=== PATIENT | male | born 1960 | race Caucasian/White ===

== ENCOUNTER 2016-12-28 09:25 | Observation (INO) | payer OTHER ==
[2016-12-28] MEDS ORDERED: Sodium Chloride 0.9% 1,000 ML IV ONE (09:31)
[2016-12-28] MEDS ORDERED: Aspirin 81 MG Tab.Chew PO ONE (09:31)
--- NOTE | 2016-12-28 09:32 | EDM.PDOC ---
ED HPI GENERAL MEDICAL PROBLEM - General Stated Complaint: CHEST PAIN Time Seen by Provider: 12/28/16 09:31 Source of Information: Reports: Patient - History of Present Illness INITIAL COMMENTS - FREE TEXT/NARRATIVE: HISTORY AND PHYSICAL: History of present illness: [Patient with cardiac history and 2 stents placed 5-6 years prior [place], presents with chest pain that awoke him from sleep at 4 AM he rates 8 out of 10 radiating to the left arm states he was diaphoretic and reports it as a "familiar pain "to his previous symptomology. He is in no distress he presents by private vehicle he is not on any medications] patient reports that all his medications were stopped by a accounting manager cpa in [place] Currently no fever nausea vomiting chills sweats There is a reproducible component along left sternal border and even in the left arm however patient's symptomatology did improve with nitroglycerin 0.4 sublingual to a 4 out of 10 Review of systems: As per history of present illness and below otherwise all systems reviewed and negative. Past medical history: As per history of present illness and as reviewed below otherwise noncontributory. Surgical history: As per history of present illness and as reviewed below otherwise noncontributory. Social history: No reported history of drug or alcohol abuse. Family history: As per history of present illness and as reviewed below otherwise noncontributory. Physical exam: HEENT: Atraumatic, normocephalic, pupils reactive, negative for conjunctival pallor or scleral icterus, mucous membranes moist, throat clear, neck supple, nontender, trachea midline. Lungs: Clear to auscultation, breath sounds equal bilaterally, chest somewhat tender along left sternal border Heart: S1S2, regular, negative for clicks, rubs, or JVD. Abdomen: Soft, nondistended, nontender. Negative for masses or hepatosplenomegaly. Negative for costovertebral tenderness. Pelvis: Stable nontender. Genitourinary: Deferred. Rectal: Deferred. Extremities: Atraumatic, negative for cords or calf pain. Neurovascular unremarkable. Neuro: Awake, alert, oriented. Cranial nerves II through XII unremarkable. Cerebellum unremarkable. Motor and sensory unremarkable throughout. Exam nonfocal. Diagnostics: [CBC CMP cardiac enzymes amylase lipase Chest 1 view EKG ] Therapeutics: []Liter normal saline bolus Aspirin 324 mg chewable Impression: []Atypical chest pain Cardiac history with stenting Probable medication noncompliance Definitive disposition and diagnosis as appropriate pending reevaluation and review of above. Left Chest Pain Score (Numeric/FACES): 4 - Related Data Allergies Allergy/AdvReac Type Severity Reaction Status Date / Time No Known Allergies Allergy Verified 12/28/16 09:37 Home Meds: Home Meds . 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 Musculoskeletal History: Reports: None Neurological History: Reports: None Psychiatric History: Reports: None Endocrine/Metabolic History: Reports: None Hematologic History: Reports: None Immunologic History: Reports: None Oncologic (Cancer) History: Reports: None Dermatologic History: Reports: None - Past Surgical History Cardiovascular Surgical History: Reports: Coronary Artery Stent, Percutaneous Transluminal Angioplasty GI Surgical History: Reports: Appendectomy, Colonoscopy, Hernia, Inguinal, Other (See Below) Social & Family History - Tobacco Use Smoking Status *Q: Former Smoker Years of Tobacco use: 25 Packs/Tins Daily: 0.5 Used Tobacco, but Quit: Yes Month Tobacco Last Used: 2013 Second Hand Smoke Exposure: No - Caffeine Use Caffeine Use: Reports: Coffee - Alcohol Use Days Per Week of Alcohol Use: 0 - Recreational Drug Use Recreational Drug Use: No Drug Use in Last 12 Months: No ED ROS GENERAL - Review of Systems Review Of Systems: ROS reveals no pertinent complaints other than HPI. ED EXAM, GENERAL - Physical Exam Exam: See Below Course - Vital Signs Last Recorded V/S: Last Vital Signs Temp 36.2 C 12/28/16 09:34 Pulse 69 12/28/16 10:06 Resp 18 12/28/16 09:34 BP 134/81 12/28/16 10:06 Pulse Ox 91 L 12/28/16 09:34 - Orders/Labs/Meds Orders: Active Orders 24 hr Category Date Time Status EKG Documentation Completion [RC] STAT Care 12/28/16 09:32 Active AMYLASE [CHEM] Stat Lab 12/28/16 09:38 Results CKMB [CHEM] Stat Lab 12/28/16 09:38 Results COMPREHENSIVE METABOLIC PN,CMP [CHEM] Stat Lab 12/28/16 09:38 Results CREATINE KINASE,CK [CHEM] Stat Lab 12/28/16 09:38 Results LIPASE [CHEM] Stat Lab 12/28/16 09:38 Results TROPONIN I [CHEM] Stat Lab 12/28/16 09:38 Results UA W/MICROSCOPIC [URIN] Stat Lab 12/28/16 09:30 Uncollected Nitroglycerin [Nitrostat] Med 12/28/16 09:35 Active 0.4 mg SL Q5M PRN Sodium Chloride 0.9% [Normal Saline] 1,000 ml Med 12/28/16 09:31 Active IV STAT Medication Orders Sodium Chloride (Normal Saline) 1,000 mls @ 999 mls/hr IV STAT ONE Stop: 12/28/16 10:31 Last Admin: 12/28/16 09:41 Dose: 999 mls/hr Nitroglycerin (Nitrostat) 0.4 mg SL Q5M PRN PRN Reason: Chest Pain Last Admin: 12/28/16 10:00 Dose: 0.4 mg Admin: 12/28/16 09:50 Dose: 0.4 mg Labs: Laboratory Tests 12/28/16 12/28/16 Range/Units 09:38 09:38 WBC 8.11 (4.0-11.0) K/uL RBC 5.52 (4.50-5.90) M/uL Hgb 16.1 (13.0-17.0) g/dL Hct 48.2 (38.0-50.0) % MCV 87.3 (80.0-98.0) fL MCH 29.2 (27.0-32.0) pg MCHC 33.4 (31.0-37.0) g/dL RDW Std Deviation 48.2 (28.0-62.0) fl RDW Coeff of Diane 15 (11.0-15.0) % Plt Count 256 (150-400) K/uL MPV 9.50 (7.40-12.00) fL Neut % (Auto) 59.3 (48.0-80.0) % Lymph % (Auto) 33.3 (16.0-40.0) % [place] % (Auto) 5.7 (0.0-15.0) % Eos % (Auto) 1.5 (0.0-7.0) % Baso % (Auto) 0.2 (0.0-1.5) % Neut # (Auto) 4.8 (1.4-5.7) K/uL Lymph # (Auto) 2.7 H (0.6-2.4) K/uL [place] # (Auto) 0.5 (0.0-0.8) K/uL Eos # (Auto) 0.1 (0.0-0.7) K/uL Baso # (Auto) 0.0 (0.0-0.1) K/uL Nucleated RBC % 0.0 /100WBC Nucleated RBCs # 0 K/uL Sodium 139 (136-146) mmol/L Potassium 4.4 (3.5-5.1) mmol/L Chloride 106 (98-110) mmol/L Carbon Dioxide 24 (21-31) mmol/L BUN 17 (6.0-23.0) mg/dL Creatinine 1.3 (0.6-1.5) mg/dL Est Cr Clr Drug Dosing 68.81 mL/min Estimated GFR (MDRD) 56.9 ml/min Glucose 170 H (60-110) mg/dL Calcium 9.4 (8.8-10.8) mg/dL Total Bilirubin 0.3 (0.1-1.5) mg/dL AST 15 (5-40) IU/L ALT 17 (8-54) IU/L Alkaline Phosphatase 79 (40-150) Creatine Kinase 79 (9-236) IU/L Troponin I < 0.10 (0.0-0.29) NG/ML Total Protein 7.3 (6.0-8.0) g/dL Albumin 3.9 (3.5-5.0) g/dL Globulin 3.4 (2.0-3.5) g/dL Albumin/Globulin Ratio 1.1 L (1.3-2.8) Amylase 87 (10-90) U/L Lipase 22 (7-80) U/L Meds: Medications Generic Name Dose Route Start Last Admin Trade Name Freq PRN Reason Stop Dose Admin Sodium Chloride 1,000 mls @ 999 mls/hr 12/28/16 09:31 12/28/16 09:41 Normal Saline IV 12/28/16 10:31 999 mls/hr STAT ONE Administration Nitroglycerin 0.4 mg 12/28/16 09:35 12/28/16 10:00 Nitrostat SL 0.4 mg Q5M PRN Administration Chest Pain Discontinued Medications Generic Name Dose Route Start Last Admin Trade Name Henry PRN Reason Stop Dose Admin Aspirin 324 mg 12/28/16 09:31 12/28/16 09:41 Aspirin PO 12/28/16 09:32 324 mg ONETIME ONE Administration Metoprolol Tartrate 5 mg 12/28/16 09:36 12/28/16 09:43 Lopressor IVPUSH 12/28/16 09:37 5 mg ONETIME ONE Administration Departure - Departure Time of Disposition: 10:19 Disposition: Refer to Observation Condition: Fair Clinical Impression: Acute coronary syndrome - Discharge Information - My Orders Last 24 Hours: My Active Orders 12/28/16 09:30 UA W/MICROSCOPIC [URIN] Stat 12/28/16 09:31 Sodium Chloride 0.9% [Normal Saline] 1,000 ml IV STAT 12/28/16 09:32 EKG Documentation Completion [RC] STAT 12/28/16 09:35 Nitroglycerin [Nitrostat] 0.4 mg SL Q5M PRN 12/28/16 09:38 AMYLASE [CHEM] Stat CKMB [CHEM] Stat COMPREHENSIVE METABOLIC PN,CMP [CHEM] Stat CREATINE KINASE,CK [CHEM] Stat LIPASE [CHEM] Stat TROPONIN I [CHEM] Stat - Assessment/Plan Last 24 Hours: My Active Orders 12/28/16 09:30 UA W/MICROSCOPIC [URIN] Stat 12/28/16 09:31 Sodium Chloride 0.9% [Normal Saline] 1,000 ml IV STAT 12/28/16 09:32 EKG Documentation Completion [RC] STAT 12/28/16 09:35 Nitroglycerin [Nitrostat] 0.4 mg SL Q5M PRN 12/28/16 09:38 AMYLASE [CHEM] Stat CKMB [CHEM] Stat COMPREHENSIVE METABOLIC PN,CMP [CHEM] Stat CREATINE KINASE,CK [CHEM] Stat LIPASE [CHEM] Stat TROPONIN I [CHEM] Stat
[2016-12-28] MEDS ORDERED: Metoprolol Tartrate 5 MG/5 ML SDV IVPUSH ONE (09:36)
[2016-12-28] MEDS: Nitroglycerin 0.4 MG Tab.SL SL PRN ×2 (09:50→10:00)
--- NOTE | 2016-12-28 10:01 | CR ---
EXAMINATION: Portable chest radiograph. HISTORY: Shortness of breath. FINDINGS: The trachea is midline. The cardiomediastinal silhouette is within normal limits. No pulmonary infilt rates, effusions or pneumothorax. Osseous structures appear unremarkable. IMPRESSION: No acute cardiopulmonary process.
[2016-12-28 10:09] LABS: CHLORIDE,CL 106 mmol/L (98-110); SODIUM,NA 139 mmol/L (136-146)
[2016-12-28] MEDS ORDERED: Albuterol/Ipratropium 3.0-0.5 MG/3 ML Neb Soln NEB PRN (11:40)
[2016-12-28] MEDS ORDERED: Ondansetron 4 MG Tab.DIS PO PRN (11:40)
--- NOTE | 2016-12-28 11:50 | PCM.HP ---
H&P History of Present Illness - General Date of Service: 12/28/16 Admit Problem/Dx: Chest pain Source of Information: Patient History Limitations: Reports: No Limitations - History of Present Illness Initial Comments - Free Text/Narative: 56-year-old male that is being admitted for ACS rule out secondary to chest pain experiencing this morning. Patient has a past medical history of coronary artery disease requiring 2 stents placed 5-6 years ago in [place]. Patient also has a history of hypercholesterolemia, hypertension and GERD. Patient notes that he was on medications following placement of the stents but followed up with a head of it in [place] who told him to discontinue all medications. It has been a number of years since the patient has been on any medications for the above-mentioned medical problems. Patient presented to the emergency room this morning after experiencing chest pain that woke him from sleep at 4 AM. The pain radiated from the left side of his chest to his left arm. Pain was rated at 8 out of 10. Patient was diaphoretic. Pain persisted until he presented to the ER and received a dose of nitroglycerin. He notes that this pain is very similar to the pain that he experienced when they found a blockage requiring stents in 2013. Patient does not take nitroglycerin at home. Patient does have a 25 year history of tobacco use but quit in 2013. Patient does not take a daily aspirin. Patient denies any headaches, dizziness, shortness of breath, wheezing, cough, abdominal pain, nausea, vomiting, cuts patient, diarrhea, peripheral edema, orthopnea, fever. ER course: CBC, CMP, initial troponin, amylase, lipase, urinalysis and chest x-ray were all unremarkable or within normal limits. Patient did receive a one-time dose of aspirin 325 mg. He was hypertensive on presentation and received a one-time dose of metoprolol tartrate 5 mg which did lower the patient's blood pressure to within normal limits. He was also given a normal saline bolus. He was given a one-time dose of nitroglycerin which did improve the patient's chest pain. Patient currently reports minimal chest pain on the general medical floor. Left Chest Pain Score (Numeric/FACES): 4 - Related Data Allergies/Adverse Reactions: Allergies Allergy/AdvReac Type Severity Reaction Status Date / Time No Known Allergies Allergy Verified 12/28/16 09:37 Home Medications: Home Meds . 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 Musculoskeletal History: Reports: None Neurological History: Reports: None Psychiatric History: Reports: None Endocrine/Metabolic History: Reports: None Hematologic History: Reports: None Immunologic History: Reports: None Oncologic (Cancer) History: Reports: None Dermatologic History: Reports: None - Infectious Disease History Infectious Disease History: Reports: Chicken Pox, Measles, Mumps - Past Surgical History Cardiovascular Surgical History: Reports: Coronary Artery Stent, Percutaneous Transluminal Angioplasty GI Surgical History: Reports: Appendectomy, Colonoscopy, Hernia, Inguinal, Other (See Below) Social & Family History - Family History Family Medical History: Noncontributory - Tobacco Use Smoking Status *Q: Former Smoker Years of Tobacco use: 25 Packs/Tins Daily: 0.5 Used Tobacco, but Quit: Yes Month Tobacco Last Used: 2013 Second Hand Smoke Exposure: No - Caffeine Use Caffeine Use: Reports: Coffee - Alcohol Use Days Per Week of Alcohol Use: 0 - Recreational Drug Use Recreational Drug Use: No Drug Use in Last 12 Months: No H&P Review of Systems - Review of Systems: Review Of Systems: See Below General: Reports: Diaphoresis HEENT: Reports: No Symptoms Pulmonary: Reports: No Symptoms Cardiovascular: Reports: Chest Pain (Left-sided chest pain with radiation to the left arm) Gastrointestinal: Reports: No Symptoms Genitourinary: Reports: No Symptoms Musculoskeletal: Reports: No Symptoms Skin: Reports: No Symptoms Psychiatric: Reports: No Symptoms Neurological: Reports: No Symptoms Hematologic/Lymphatic: Reports: No Symptoms Immunologic: Reports: No Symptoms Exam - Exam Exam: See Below - Vital Signs Vital Signs: Last Vital Signs Temp 97.2 F 12/28/16 09:34 Pulse 60 12/28/16 10:46 Resp 12 12/28/16 10:46 BP 134/87 12/28/16 10:46 Pulse Ox 96 12/28/16 10:46 Weight: 273 lb 2.444 oz - Exam Quality Assessment: DVT Prophylaxis (Lovenox, SCDs) General: Alert, Oriented, Cooperative HEENT: Conjunctiva Clear, Hearing Intact, Nares Patent, Normal Nasal Septum Neck: Supple, Trachea Midline, 2 Lungs: Clear to Auscultation, Normal Respiratory Effort Cardiovascular: Regular Rate, Regular Rhythm, Other (Patient does have mild tenderness with palpation on the left side of the chest along the left sternal border.) GI/Abdominal Exam: Normal Bowel Sounds, Soft, Non-Tender, No Organomegaly, No Distention, No Abnormal Bruit, No Mass Extremities: Normal Inspection, Normal Range of Motion, Non-Tender, No Pedal Edema, Normal Capillary Refill Peripheral Pulses: 2+: Radial (L), Radial (R), Posterior Tibial (L), Posterior Tibial (R) Skin: Warm, Dry, Intact Neuro Extensive - Mental Status: Alert, Oriented x3, Normal Mood/Affect, Normal Cognition Psychiatric: Alert, Normal Affect, Normal Mood - Patient Data Result Diagrams: 12/28/16 09:38 12/28/16 09:38 *Q Meaningful Use (ADM) - VTE *Q VTE Criteria *Q: - Stroke *Q Stroke Criteria *Q: - AMI *Q AMI Criteria *Q: - Problem List (1) Chest pain SNOMED Code(s): 60266846 ICD Code: R07.9 - CHEST PAIN, UNSPECIFIED Status: Acute Current Visit: No Qualifiers: Chest pain type: unspecified Qualified Code(s): R07.9 - Chest pain, unspecified Problem List Initiated/Reviewed/Updated: Yes Orders Last 24hrs: Active Orders 24 hr Category Date Time Status Antiembolic Devices [RC] PER UNIT ROUTINE Care 12/28/16 11:42 Ordered Cardiac Monitoring [RC] . DIRECTED Care 12/28/16 11:37 Ordered Communication Order [RC] ROUTINE Care 12/28/16 11:39 Ordered Height and Weight [RC] DAILY Care 12/28/16 11:40 Ordered Intake and Output [RC] QSHIFT Care 12/28/16 11:40 Ordered Notify Provider Vital Signs [RC] ASDIRECTED Care 12/28/16 11:40 Ordered Oxygen Therapy [RC] PRN Care 12/28/16 11:40 Ordered Pulse Oximetry [RC] PRN Care 12/28/16 11:40 Ordered RT Aerosol Therapy [RC] ASDIRECTED Care 12/28/16 11:43 Ordered Telemetry Monitoring [Cardiac Monitoring] [RC] . Care 12/28/16 11:44 Ordered DIRECTED Up With Assistance [RC] ASDIRECTED Care 12/28/16 11:40 Ordered VTE/DVT Education [RC] PER UNIT ROUTINE Care 12/28/16 11:40 Ordered Vital Signs [RC] Q4H Care 12/28/16 11:40 Ordered Heart Healthy Diet [DIET] Diet 12/28/16 Breakfast Ordered BASIC METABOLIC PANEL,BMP [CHEM] AM Lab 12/29/16 05:11 Ordered CBC WITH AUTO DIFF [HEME] AM Lab 12/29/16 05:11 Ordered GLYCOSYLATED HEMOGLOBIN,HGBA1C [CHEM] Routine Lab 12/28/16 11:37 Ordered LIPID PANEL [CHEM] Routine Lab 12/28/16 11:37 Ordered MAGNESIUM [CHEM] Routine Lab 12/28/16 11:40 Ordered TROPONIN I [CHEM] Q6H Lab 12/28/16 15:30 Ordered TROPONIN I [CHEM] Q6H Lab 12/28/16 21:30 Ordered Acetaminophen [Tylenol] Med 12/28/16 11:40 Ordered 650 mg PO Q4H PRN Albuterol/Ipratropium [DuoNeb 3.0-0.5 MG/3 ML] Med 12/28/16 11:40 Ordered 3 ml NEB Q4HRRT PRN Enoxaparin [Lovenox] Med 12/28/16 11:45 Ordered 40 mg SUBCUT DAILY Metoprolol Tartrate [Lopressor] Med 12/28/16 21:00 Ordered 25 mg PO Q12HR Ondansetron [Zofran ODT] Med 12/28/16 11:40 Ordered 4 mg PO Q4H PRN atorvaSTATin [Lipitor] Med 12/28/16 21:00 Ordered 40 mg PO BEDTIME Sequential Compression Device [OM.PC] Per Unit Routine Oth 12/28/16 11:41 Ordered Resuscitation Status Routine Resus Stat 12/28/16 11:40 Ordered Medication Orders Acetaminophen (Tylenol) 650 mg PO Q4H PRN PRN Reason: Pain (Mild 1-3)/fever Albuterol/Ipratropium (Duoneb 3.0-0.5 Mg/3 Ml) 3 ml NEB Q4HRRT PRN PRN Reason: Shortness Of Breath/wheezing Atorvastatin Calcium (Lipitor) 40 mg PO BEDTIME STEPHEN Enoxaparin Sodium (Lovenox) 40 mg SUBCUT DAILY STEPHEN Metoprolol Tartrate (Lopressor) 25 mg PO Q12HR STEPHEN Nitroglycerin (Nitrostat) 0.4 mg SL Q5M PRN PRN Reason: Chest Pain Last Admin: 12/28/16 10:00 Dose: 0.4 mg Admin: 12/28/16 09:50 Dose: 0.4 mg Ondansetron HCl (Zofran Odt) 4 mg PO Q4H PRN PRN Reason: nausea, able to take PO Assessment/Plan Comment:: 56-year-old male with chest pain being admitted for ACS rule out. #1. Chest pain: -Initial troponin was negative. All workup in the ER has been unremarkable. -Lipid panel and hemoglobin A1c are pending. -Patient started on a daily aspirin. Also started on Lipitor 40 mg at bedtime and metoprolol tartrate 25 mg twice a day for blood pressure control. -We will trend troponins every 6 hours 3. -Patient placed on telemetry. -Magnesium level is pending. -I have requested the head of it notes from [place] in [place]. DVT prophylaxis: SCDs, Lovenox. Disposition: Potential discharge in the morning pending unremarkable cardiac workup.
[2016-12-28] MEDS: Enoxaparin 40 MG/0.4 ML Syringe SUBCUT SCH (12:40)
[2016-12-28] MEDS: Acetaminophen 325 MG Tab PO PRN ×2 (17:37→21:24)
[2016-12-28] MEDS ORDERED: traMADol 50 MG Tab PO ONE (20:49)
[2016-12-28] MEDS ORDERED: atorvaSTATin 40 MG Tab PO SCH (21:00)
[2016-12-28] MEDS: Metoprolol Tartrate 25 MG Tab PO SCH (21:03)
[2016-12-29 05:11] LABS: CHLORIDE,CL 107 mmol/L (98-110); SODIUM,NA 139 mmol/L (136-146)
[2016-12-29] MEDS: Enoxaparin 40 MG/0.4 ML Syringe SUBCUT SCH (08:11)
[2016-12-29] MEDS: Metoprolol Tartrate 25 MG Tab PO SCH (08:13)
[2016-12-29 08:14] VITALS: BP 131/83
== END 2016-12-29 09:55 | disposition home or self-care (01) ==
LOC: MW.ED 09:25 → MW.ICU 10:56
PROVIDERS: ADMIT Internal Medicine; ATTEND Internal Medicine
DX: R07.9 Chest pain, unspecified (principal); I25.119 Atherosclerotic heart disease of native coronary artery with unspecified angina pectoris; I10 Essential (primary) hypertension; E78.00 Pure hypercholesterolemia, unspecified; K21.9 Gastro-esophageal reflux disease without esophagitis; Z95.5 Presence of coronary angioplasty implant and graft; Z90.49 Acquired absence of other specified parts of digestive tract; Z87.891 Personal history of nicotine dependence
CPT/HCPCS: 36415; 71010; 80048; 80053; 80061; 81001; 82150; 82550; 82553; 82962; 83036; 83690; 83735; 84484; 85025; 93005; 96361; 96374; 99285; A9270; J1650; J7040; 96372; 99282; G0378

== ENCOUNTER 2017-07-16 11:12 | Observation (INO) | payer OTHER ==
[2017-07-16] MEDS ORDERED: Aspirin 81 MG Tab.Chew PO ONE (11:15)
[2017-07-16] MEDS ORDERED: Sodium Chloride 0.9% 1,000 ML IV ONE (11:15)
--- NOTE | 2017-07-16 11:16 | EDM.PDOC ---
ED HPI GENERAL MEDICAL PROBLEM - General Chief Complaint: Chest Pain Stated Complaint: CHEST PAIN Time Seen by Provider: 07/16/17 11:15 Source of Information: Reports: Patient History Limitations: Reports: No Limitations - History of Present Illness INITIAL COMMENTS - FREE TEXT/NARRATIVE: HISTORY AND PHYSICAL: History of present illness: Patient is a 57-year-old male who presents to the emergency room with complaints of chest pain 1 week. He describes this pain as a dull aching pressure which has been ongoing for the last week. He states nothing made the pain worse today that "I'm just sick of it". He has had some shortness of breath and diaphoresis intermittently. Does have a history of heart disease with stents - sees our transplant nurse practitioner Dr. Fraga; has not seen him in the last 5 months. States he does take aspirin daily and has nitroglycerin available to him, but has not taken either this morning. He denies any fever, chills, abdominal pain, nausea, vomiting, diarrhea or constipation. Review of systems: As per history of present illness and below otherwise all systems reviewed and negative. Past medical history: As per history of present illness and as reviewed below otherwise noncontributory. Surgical history: As per history of present illness and as reviewed below otherwise noncontributory. Social history: No reported history of drug or alcohol abuse. Family history: As per history of present illness and as reviewed below otherwise noncontributory. Physical exam: General: Well-developed and well-nourished 57-year-old male. Alert and oriented. Nontoxic appearing and in no acute distress. HEENT: Atraumatic, normocephalic, pupils equal and reactive bilaterally, negative for conjunctival pallor or scleral icterus, mucous membranes moist, throat clear, neck supple, nontender, trachea midline. No drooling or trismus noted. No meningeal signs Lungs: Clear to auscultation, breath sounds equal bilaterally, chest nontender. Heart: S1S2, regular rate and rhythm without overt murmur Abdomen: Soft, nondistended, nontender. Negative for masses or hepatosplenomegaly. Negative for costovertebral tenderness. Pelvis: Stable nontender. Genitourinary: Deferred. Rectal: Deferred. Skin: Intact, warm, dry. No lesions or rashes noted. Extremities: Atraumatic, negative for cords or calf pain. Neurovascular unremarkable. Neuro: Awake, alert, oriented. Cranial nerves II through XII unremarkable. Cerebellum unremarkable. Motor and sensory unremarkable throughout. Exam nonfocal. Notes: EKG was reviewed by myself and Dr. Hodge, sinus rhythm with HR of 86. No change from previous EKG. he had workup being done at this time. Vital signs are stable. He had 2 tablets nitroglycerin and pain has not been alleviated or decreased. We 'll hold the third dose of nitroglycerin as his blood pressure is 106 over sees. Will give some morphine at this time and repeat a second EKG. 1150: Repeat EKG shows no changes from the first. Patient is currently pain- free. Troponin. Chest x-ray shows no evidence of pneumonia or infiltrate. 1200: Dr Foley was paged Diagnostics: CBC, CMP, troponin, EKG, one view chest x-ray Therapeutics: Nitroglycerin, aspirin Impression: Chest pain r/o NH Plan: Observation admission with Telemetry Definitive disposition and diagnosis as appropriate pending reevaluation and review of above. Duration: Week(s): Location: Reports: Chest Middle Chest Pain Score (Numeric/FACES): 6 - Related Data Allergies Allergy/AdvReac Type Severity Reaction Status Date / Time No Known Allergies Allergy Verified 07/16/17 11:29 Home Meds: Home Meds Aspirin 81 mg PO BEDTIME #30 tab.chew 12/29/16 [Rx] Metoprolol Tartrate [Lopressor] 25 mg PO Q12HR #60 tablet 12/29/16 [Rx] Nitroglycerin [IJP: Nitroglycerin] 0.4 mg SL Q5M PRN #90 tablet, sublingual [Rx] atorvaSTATin [Lipitor] 40 mg PO BEDTIME #30 tablet 12/29/16 [Rx] Past Medical History HEENT History: Reports: None, Other (See Below) Other HEENT History: dental abcess Cardiovascular History: Reports: CAD, High Cholesterol, Hypertension, Stents Other Cardiovascular History: acute coronary syndrome, angina, stent x2 Respiratory History: Reports: SOB Gastrointestinal History: Reports: GERD, Other (See Below) Other Gastrointestinal History: L groin pain, hernias Genitourinary History: Reports: None 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 Musculoskeletal History: Reports: None Neurological History: Reports: None Psychiatric History: Reports: None Endocrine/Metabolic History: Reports: None Hematologic History: Reports: None Immunologic History: Reports: None Oncologic (Cancer) History: Reports: None Dermatologic History: Reports: None - Infectious Disease History Infectious Disease History: Reports: Chicken Pox, Measles, Mumps - Past Surgical History Cardiovascular Surgical History: Reports: Coronary Artery Stent, Percutaneous Transluminal Angioplasty GI Surgical History: Reports: Appendectomy, Colonoscopy, Hernia, Inguinal, Other (See Below) Social & Family History - Family History Family Medical History: Noncontributory - Caffeine Use Caffeine Use: Reports: Coffee ED ROS GENERAL - Review of Systems Review Of Systems: ROS reveals no pertinent complaints other than HPI. ED EXAM, GENERAL - Physical Exam Exam: See Below (See dictation) Course - Vital Signs Last Recorded V/S: Last Vital Signs Temp 98.7 F 07/16/17 11:15 Pulse 85 07/16/17 11:15 Resp 16 07/16/17 11:15 BP 137/75 07/16/17 11:34 Pulse Ox 94 L 07/16/17 11:15 - Orders/Labs/Meds Orders: Active Orders 24 hr Category Date Time Status Admission Status [Patient Status] [ADT] Stat ADT 07/16/17 12:12 Ordered Cardiac Monitoring [RC] . DIRECTED Care 07/16/17 12:12 Ordered EKG Documentation Completion [RC] STAT Care 07/16/17 11:15 Active EKG Documentation Completion [RC] STAT Care 07/16/17 11:43 Active Nitroglycerin [Nitrostat] Med 07/16/17 11:15 Active 0.4 mg SL Q5M PRN Sodium Chloride 0.9% [Normal Saline] 1,000 ml Med 07/16/17 11:15 Active IV STAT Medication Orders Sodium Chloride (Normal Saline) 1,000 mls @ 999 mls/hr IV STAT ONE Stop: 07/16/17 12:15 Last Admin: 07/16/17 11:24 Dose: 999 mls/hr Nitroglycerin (Nitrostat) 0.4 mg SL Q5M PRN PRN Reason: Chest Pain Last Admin: 07/16/17 11:34 Dose: 0.4 mg Admin: 07/16/17 11:26 Dose: 0.4 mg Labs: Laboratory Tests 07/16/17 07/16/17 Range/Units 11:17 11:17 WBC 12.25 H (4.0-11.0) K/uL RBC 5.81 (4.50-5.90) M/uL Hgb 16.5 (13.0-17.0) g/dL Hct 50.5 H (38.0-50.0) % MCV 86.9 (80.0-98.0) fL MCH 28.4 (27.0-32.0) pg MCHC 32.7 (31.0-37.0) g/dL RDW Std Deviation 47.4 (28.0-62.0) fl RDW Coeff of Diane 15 (11.0-15.0) % Plt Count 262 (150-400) K/uL MPV 9.40 (7.40-12.00) fL Neut % (Auto) 75.9 (48.0-80.0) % Lymph % (Auto) 18.0 (16.0-40.0) % [place] % (Auto) 5.5 (0.0-15.0) % Eos % (Auto) 0.4 (0.0-7.0) % Baso % (Auto) 0.2 (0.0-1.5) % Neut # (Auto) 9.3 H (1.4-5.7) K/uL Lymph # (Auto) 2.2 (0.6-2.4) K/uL [place] # (Auto) 0.7 (0.0-0.8) K/uL Eos # (Auto) 0.1 (0.0-0.7) K/uL Baso # (Auto) 0.0 (0.0-0.1) K/uL Nucleated RBC % 0.0 /100WBC Nucleated RBCs # 0 K/uL Sodium 139 (136-148) mmol/L Potassium 4.2 (3.5-5.1) mmol/L Chloride 103 (98-107) mmol/L Carbon Dioxide 28.7 (21.0-32.0) mmol/L BUN 21 H (7.0-18.0) mg/dL Creatinine 1.4 H (0.8-1.3) mg/dL Est Cr Clr Drug Dosing 63.13 mL/min Estimated GFR (MDRD) 52.1 ml/min Glucose 108 H (74-106) mg/dL Calcium 9.7 (8.5-10.1) mg/dL Total Bilirubin 0.6 (0.2-1.0) mg/dL AST 16 (15-37) IU/L ALT 31 (14-63) IU/L Alkaline Phosphatase 102 (46-116) U/L Troponin I < 0.050 (0.000-0.056) ng/mL Total Protein 7.8 (6.4-8.2) g/dL Albumin 4.0 (3.4-5.0) g/dL Globulin 3.8 H (2.0-3.5) g/dL Albumin/Globulin Ratio 1.1 L (1.3-2.8) Meds: Medications Generic Name Dose Route Start Last Admin Trade Name Freq PRN Reason Stop Dose Admin Sodium Chloride 1,000 mls @ 999 mls/hr 07/16/17 11:15 07/16/17 11:24 Normal Saline IV 07/16/17 12:15 999 mls/hr STAT ONE Administration Nitroglycerin 0.4 mg 07/16/17 11:15 07/16/17 11:34 Nitrostat SL 0.4 mg Q5M PRN Administration Chest Pain Discontinued Medications Generic Name Dose Route Start Last Admin Trade Name Freq PRN Reason Stop Dose Admin Aspirin 324 mg 07/16/17 11:15 07/16/17 11:24 Aspirin PO 07/16/17 11:16 324 mg ONETIME ONE Administration Morphine Sulfate 4 mg 07/16/17 11:43 07/16/17 11:52 Morphine IVPUSH 07/16/17 11:44 4 mg ONETIME ONE Administration Departure - Departure Time of Disposition: 12:14 Disposition: Refer to Observation Clinical Impression: Chest pain, rule out acute myocardial infarction Referrals: PCP,None [Primary Care Provider] - Forms: ED Department Discharge - My Orders Last 24 Hours: My Active Orders 07/16/17 11:15 EKG Documentation Completion [RC] STAT Nitroglycerin [Nitrostat] 0.4 mg SL Q5M PRN Sodium Chloride 0.9% [Normal Saline] 1,000 ml IV STAT 07/16/17 11:43 EKG Documentation Completion [RC] STAT 07/16/17 12:12 Admission Status [Patient Status] [ADT] Stat Cardiac Monitoring [RC] . DIRECTED - Assessment/Plan Last 24 Hours: My Active Orders 07/16/17 11:15 EKG Documentation Completion [RC] STAT Nitroglycerin [Nitrostat] 0.4 mg SL Q5M PRN Sodium Chloride 0.9% [Normal Saline] 1,000 ml IV STAT 07/16/17 11:43 EKG Documentation Completion [RC] STAT 07/16/17 12:12 Admission Status [Patient Status] [ADT] Stat Cardiac Monitoring [RC] . DIRECTED
[2017-07-16] MEDS: Nitroglycerin 0.4 MG Tab.SL SL PRN ×2 (11:26→11:34)
--- NOTE | 2017-07-16 11:40 | CR ---
Portable chest Clinical history: Chest pain Comparison: December 28, 2016. Findings: The costophrenic angles remain clear. The cardiomediastinum is normal and the lungs are nitin ar. Given the history of chest pain no suspected pneumothorax. Impression: Normal chest unchanged
[2017-07-16] MEDS ORDERED: Morphine 4 MG/ML Syringe IVPUSH ONE (11:43)
[2017-07-16 11:55] LABS: CHLORIDE,CL 103 mmol/L (98-107); SODIUM,NA 139 mmol/L (136-148)
[2017-07-16] MEDS ORDERED: Albuterol/Ipratropium 3.0-0.5 MG/3 ML Neb Soln NEB PRN (13:25)
[2017-07-16] MEDS ORDERED: Pantoprazole 40 MG Vial IVPUSH ONE (13:25)
--- NOTE | 2017-07-16 13:43 | PCM.HP ---
H&P History of Present Illness - General Date of Service: 07/16/17 Admit Problem/Dx: Admission Diagnosis/Problem Admission Diagnosis/Problem Chest pain, rule out acute myocardial infarction Source of Information: Patient History Limitations: Reports: No Limitations - History of Present Illness Initial Comments - Free Text/Narative: 57M with a past medical history of CAD s/p stent placement 4 years ago, HTN, GERD, presenting today with a chief complaint of ongoing chest pain x1 week. Patient tells me that for the past week, he has been experiencing left sided, non radiating chest pain that worsens with exertion or taking a deep breath. It is constant. He has also been experiencing a productive cough for greenish phlegm. He is concerned because the last time he was having a similar pain was 4 years ago when he had stents placed. He has also been experiencing a gagging sensation over the past week that makes him feel like something is stuck in his throat. No dysphagia. ER course: nitro x2 - mildly relieved chest pain, resulted in a headache CXR - unremarkable EKG - NSR NS 1L bolus x1 Aspirin 325mg PO Middle Chest Pain Score (Numeric/FACES): 5 - Related Data Allergies/Adverse Reactions: Allergies Allergy/AdvReac Type Severity Reaction Status Date / Time No Known Allergies Allergy Verified 07/16/17 11:29 Home Medications: Home Meds Aspirin 81 mg PO BEDTIME #30 tab.chew 12/29/16 [Rx] Metoprolol Tartrate [Lopressor] 25 mg PO Q12HR #60 tablet 12/29/16 [Rx] Nitroglycerin [IJP: Nitroglycerin] 0.4 mg SL Q5M PRN #90 tablet, sublingual [Rx] atorvaSTATin [Lipitor] 40 mg PO BEDTIME #30 tablet 12/29/16 [Rx] Past Medical History HEENT History: Reports: None, Other (See Below) Other HEENT History: dental abcess Cardiovascular History: Reports: CAD, High Cholesterol, Hypertension, Stents Other Cardiovascular History: acute coronary syndrome, angina, stent x2 Respiratory History: Reports: SOB Gastrointestinal History: Reports: GERD, Other (See Below) Other Gastrointestinal History: L groin pain, hernias Genitourinary History: Reports: None 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 Musculoskeletal History: Reports: None Neurological History: Reports: None Psychiatric History: Reports: None Endocrine/Metabolic History: Reports: None Hematologic History: Reports: None Immunologic History: Reports: None Oncologic (Cancer) History: Reports: None Dermatologic History: Reports: None - Infectious Disease History Infectious Disease History: Reports: Chicken Pox, Measles, Mumps - Past Surgical History Cardiovascular Surgical History: Reports: Coronary Artery Stent, Percutaneous Transluminal Angioplasty GI Surgical History: Reports: Appendectomy, Colonoscopy, Hernia, Inguinal, Other (See Below) Social & Family History - Family History Family Medical History: Noncontributory - Tobacco Use Smoking Status *Q: Former Smoker Used Tobacco, but Quit: Yes Month/Year Tobacco Last Used: 2012 Second Hand Smoke Exposure: No - Caffeine Use Caffeine Use: Reports: Coffee - Recreational Drug Use Recreational Drug Use: No H&P Review of Systems - Review of Systems: Review Of Systems: See Below General: Reports: Other (see HPI) HEENT: Reports: Headaches (after nitroglycerin) Pulmonary: Reports: Pleuritic Chest Pain, Cough, Sputum. Denies: Hemoptysis Cardiovascular: Reports: Chest Pain, Dyspnea on Exertion, Orthopnea. Denies: Palpitations, Edema, Lightheadedness, Syncope Gastrointestinal: Reports: Abdominal Pain (epigastric region) Genitourinary: Reports: No Symptoms Musculoskeletal: Reports: No Symptoms Skin: Reports: No Symptoms Psychiatric: Reports: No Symptoms Neurological: Reports: No Symptoms Hematologic/Lymphatic: Reports: No Symptoms Immunologic: Reports: No Symptoms Exam - Exam Exam: See Below - Vital Signs Vital Signs: Last Vital Signs Temp 37.1 C 07/16/17 13:12 Pulse 85 07/16/17 13:12 Resp 18 07/16/17 13:12 BP 140/96 H 07/16/17 13:12 Pulse Ox 95 07/16/17 13:12 Weight: 123.06 kg - Exam General: Alert, Oriented HEENT: PERRLA, Hearing Intact, Mucosa Moist & [place], Nares Patent, Normal Nasal Septum, Posterior Pharynx Clear, Conjunctiva Clear, EOMI, EACs Clear, TMs Clear Neck: Supple, Trachea Midline, 2 Lungs: Normal Respiratory Effort, Wheezing. No: Rales Cardiovascular: Regular Rate, Regular Rhythm GI/Abdominal Exam: Normal Bowel Sounds, Soft, Other (tenderness to palpation in the epigastric region) Back Exam: Normal Inspection, Full Range of Motion. No: CVA Tenderness (L), CVA Tenderness (R) Extremities: Normal Inspection, Normal Range of Motion, Non-Tender, No Pedal Edema, Normal Capillary Refill Skin: Warm, Dry, Intact Neurological: Cranial Nerves Intact, Reflexes Equal Bilateral Neuro Extensive - Mental Status: Alert, Oriented x3, Normal Mood/Affect, Normal Cognition Neuro Extensive - Motor, Sensory, Reflexes: CN II-XII Intact, Normal Gait, Normal Reflexes Psychiatric: Alert, Normal Affect, Normal Mood - Patient Data Lab Results Last 24 hrs: Laboratory Results - last 24 hr 07/16/17 07/16/17 Range/Units 11:17 11:17 WBC 12.25 H (4.0-11.0) K/uL RBC 5.81 (4.50-5.90) M/uL Hgb 16.5 (13.0-17.0) g/dL Hct 50.5 H (38.0-50.0) % MCV 86.9 (80.0-98.0) fL MCH 28.4 (27.0-32.0) pg MCHC 32.7 (31.0-37.0) g/dL RDW Std Deviation 47.4 (28.0-62.0) fl RDW Coeff of Diane 15 (11.0-15.0) % Plt Count 262 (150-400) K/uL MPV 9.40 (7.40-12.00) fL Neut % (Auto) 75.9 (48.0-80.0) % Lymph % (Auto) 18.0 (16.0-40.0) % [place] % (Auto) 5.5 (0.0-15.0) % Eos % (Auto) 0.4 (0.0-7.0) % Baso % (Auto) 0.2 (0.0-1.5) % Neut # (Auto) 9.3 H (1.4-5.7) K/uL Lymph # (Auto) 2.2 (0.6-2.4) K/uL [place] # (Auto) 0.7 (0.0-0.8) K/uL Eos # (Auto) 0.1 (0.0-0.7) K/uL Baso # (Auto) 0.0 (0.0-0.1) K/uL Nucleated RBC % 0.0 /100WBC Nucleated RBCs # 0 K/uL Sodium 139 (136-148) mmol/L Potassium 4.2 (3.5-5.1) mmol/L Chloride 103 (98-107) mmol/L Carbon Dioxide 28.7 (21.0-32.0) mmol/L BUN 21 H (7.0-18.0) mg/dL Creatinine 1.4 H (0.8-1.3) mg/dL Est Cr Clr Drug Dosing 63.13 mL/min Estimated GFR (MDRD) 52.1 ml/min Glucose 108 H (74-106) mg/dL Calcium 9.7 (8.5-10.1) mg/dL Total Bilirubin 0.6 (0.2-1.0) mg/dL AST 16 (15-37) IU/L ALT 31 (14-63) IU/L Alkaline Phosphatase 102 (46-116) U/L Troponin I < 0.050 (0.000-0.056) ng/mL Total Protein 7.8 (6.4-8.2) g/dL Albumin 4.0 (3.4-5.0) g/dL Globulin 3.8 H (2.0-3.5) g/dL Albumin/Globulin Ratio 1.1 L (1.3-2.8) Result Diagrams: 07/16/17 11:17 07/16/17 11:17 Problem List Initiated/Reviewed/Updated: Yes Orders Last 24hrs: Active Orders 24 hr Category Date Time Status Admission Status [Patient Status] [ADT] Stat ADT 07/16/17 12:12 Active Cardiac Monitoring [RC] CONTINUOUS Care 07/16/17 13:25 Ordered Cardiac Monitoring [RC] Q8HR Care 07/16/17 12:12 Active EKG Documentation Completion [RC] STAT Care 07/16/17 11:15 Active EKG Documentation Completion [RC] STAT Care 07/16/17 11:43 Active Oxygen Therapy [RC] PRN Care 07/16/17 13:25 Ordered RT Aerosol Therapy [RC] ASDIRECTED Care 07/16/17 13:28 Ordered Up ad Maggie [RC] ASDIRECTED Care 07/16/17 13:25 Ordered VTE/DVT Education [RC] PER UNIT ROUTINE Care 07/16/17 13:25 Ordered Vital Signs [RC] Q4H Care 07/16/17 13:25 Ordered Heart Healthy Diet [DIET] Diet 07/16/17 Lunch Ordered TROPONIN I [CHEM] Q6H Lab 07/16/17 18:00 Ordered TROPONIN I [CHEM] Q6H Lab 07/17/17 00:00 Ordered Albuterol/Ipratropium [DuoNeb 3.0-0.5 MG/3 ML] Med 07/16/17 13:25 Ordered 3 ml NEB Q4HRRT PRN Aspirin Med 07/16/17 21:00 Ordered 81 mg PO BEDTIME Metoprolol Tartrate [Lopressor] Med 07/16/17 21:00 Ordered 25 mg PO Q12HR Nitroglycerin [Nitrostat] Med 07/16/17 11:15 Active 0.4 mg SL Q5M PRN atorvaSTATin [Lipitor] Med 07/16/17 21:00 Ordered 40 mg PO BEDTIME Sequential Compression Device [OM.PC] Per Unit Routine Oth 07/16/17 13:26 Ordered Resuscitation Status Routine Resus Stat 07/16/17 13:25 Ordered Medication Orders Albuterol/Ipratropium (Duoneb 3.0-0.5 Mg/3 Ml) 3 ml NEB Q4HRRT PRN PRN Reason: Shortness Of Breath/wheezing Aspirin (Aspirin) 81 mg PO BEDTIME STEPHEN Atorvastatin Calcium (Lipitor) 40 mg PO BEDTIME STEPHEN Metoprolol Tartrate (Lopressor) 25 mg PO Q12HR STEPHEN Nitroglycerin (Nitrostat) 0.4 mg SL Q5M PRN PRN Reason: Chest Pain Last Admin: 07/16/17 11:34 Dose: 0.4 mg Admin: 07/16/17 11:26 Dose: 0.4 mg Assessment/Plan Comment:: Assessment: #1. ACS rule out #2. Viral bronchitis #3. Epigastric tenderness #4. Leukocytosis #5. Acute Kidney Injury #6. History of CAD, HTN, GERD Plan: #1. Admit to the floor for observation. Full code. SCD + Lovenox for DVT prophylaxis. #2. Vital signs per floor routine. Cardiac telemetry. #3. Cardiac diet #4. Troponin q6h x2 - first draw obtained in ER negative #5. Will obtain a lipase to rule out pancreatitis as a potential cause of his epigastric pain #6. DuoNeb q4h PRN sob/wheezing given lung exam, clinical picture being consistent with a viral bronchitis. CXR does not show any cardiopulmonary process #7. Protonix 40mg IV x1 for hx of GERD, as this may be the cause of his chest pain in combination with ongoing bronchitis #8. Continue home medicines #9. Anticipate discharge tomorrow pending negative cardiac workup. Will schedule for outpatient echocardiogram given complaints of orthopnea, dyspnea on exertion. His stress test done in 01/28 indicates signs of ischemia with EF 51%.
[2017-07-16] MEDS ORDERED: Enoxaparin 40 MG/0.4 ML Syringe SUBCUT SCH (14:00)
[2017-07-16] MEDS: Amoxicillin/Clavulanate K 875-125 MG Tab PO SCH (20:05)
[2017-07-16] MEDS: Metoprolol Tartrate 25 MG Tab PO SCH (20:05)
[2017-07-16] MEDS ORDERED: atorvaSTATin 40 MG Tab PO SCH (21:00)
[2017-07-16] MEDS ORDERED: Aspirin 81 MG Tab.Chew PO SCH (21:00)
[2017-07-16] MEDS ORDERED: Morphine 10 MG/ML Syringe ONE (23:54)
[2017-07-17] MEDS ORDERED: Acetaminophen 325 MG Tab PO PRN (00:50)
[2017-07-17 07:34] VITALS: BP 135/78
--- NOTE | 2017-07-17 08:16 | PCM.DCSUM1 ---
Discharge Summary - Hospital Course Free Text/Narrative:: Admission date: 07/16/2017 Discharge date: 07/17/2017 Admission diagnosis: #1. ACS Rule out #2. Viral bronchitis #3. Epigastric pain #4. History of HTN, CAD, gastric reflux Discharge diagnosis: #1. ACS Ruled out #2. Acute sinusitis #3. History of HTN, CAD, Gastric reflux Hospital course: 57M with past history as stated above that presented to the ER for ongoing chest pain x1 week. Given his cardiac history, he came to the ER concerned about that being a potential cause. In the ER, he received nitro x2, which mildly relieved his chest pain. He was admitted for overnight observation. Troponin x3 negative, NSR. He did have epigastric tenderness so I ordered a lipase which was negative. In the evening of the admission, he told me that has been experiencing facial pressure and pain thats been ongoing as well, for which I started augmentin for. He does have a history of gastric reflux as well , he had been taking omeprazole in the past. During his stay, he also complained of orthopnea and dyspnea on exertion. He had a nuclear scan done in 01/28 which indicated EF 51%, and signs of mild inferior wall ischemia. I have ordered for him an outpatient echocardiogram secondary to his complaints which he states have gotten worse recently. Discharge medications: #1. Augmentin PO q12h x 9 days #2. Protonix 40mg PO daily x 28 days F/U: #1. PCP - Dr. Hughes #2. Delivery Engineer - Dr. Dalton Patient advised to return if he experiences chest pain, sob, palpitations, fever , chills, nausea or vomiting. - Discharge Data Discharge Date: 07/17/17 Discharge Disposition: Home, Self-Care 01 Condition: Stable - Patient Instructions Diet: Heart Healthy Diet, Low Sodium Activity: As Tolerated Driving: May Drive Today Showering/Bathing: May Shower Wound/Incision Care: Keep Operative Site/Wound Site Clean and Dry Notify Provider of: Fever, Increased Pain, Swelling and Redness, Drainage, Nausea and/or Vomiting - Discharge Plan Prescriptions/Med Rec: Amoxicillin/Clavulanate K [Augmentin 875-125 MG] 1 tab PO Q12HR 9 Days #18 tablet Pantoprazole Sodium [Protonix] 40 mg PO DAILY 28 Days #28 tablet.dr Home Medications: Home Meds Aspirin 81 mg PO BEDTIME #30 tab.chew 12/29/16 [Rx] Metoprolol Tartrate [Lopressor] 25 mg PO Q12HR #60 tablet 12/29/16 [Rx] Nitroglycerin [IJP: Nitroglycerin] 0.4 mg SL Q5M PRN #90 tablet, sublingual [Rx] atorvaSTATin [Lipitor] 40 mg PO BEDTIME #30 tablet 12/29/16 [Rx] Amoxicillin/Clavulanate K [Augmentin 875-125 MG] 1 tab PO Q12HR 9 Days #18 tablet 07/17/17 [Rx] Pantoprazole Sodium [Protonix] 40 mg PO DAILY 28 Days #28 tablet. 07/17/17 [Rx ] Patient Handouts: Amoxicillin capsules or tablets, Exercise Stress Echocardiogram, [id number], Nonspecific Chest Pain, [id number], Pantoprazole tablets Referrals: Lisa Dalton MD [Physician] - Bryan Hughes [Resident] - - Discharge Summary/Plan Comment Discharge Summary/Plan Comment: Admission date: 07/16/2017 Discharge date: 07/17/2017 Admission diagnosis: #1. ACS Rule out #2. Viral bronchitis #3. Epigastric pain #4. History of HTN, CAD, gastric reflux Discharge diagnosis: #1. ACS Ruled out #2. Acute sinusitis #3. History of HTN, CAD, Gastric reflux Hospital course: 57M with past history as stated above that presented to the ER for ongoing chest pain x1 week. Given his cardiac history, he came to the ER concerned about that being a potential cause. In the ER, he received nitro x2, which mildly relieved his chest pain. He was admitted for overnight observation. Troponin x3 negative, NSR. He did have epigastric tenderness so I ordered a lipase which was negative. In the evening of the admission, he told me that has been experiencing facial pressure and pain thats been ongoing as well, for which I started augmentin for. He does have a history of gastric reflux as well , he had been taking omeprazole in the past. During his stay, he also complained of orthopnea and dyspnea on exertion. He had a nuclear scan done in 01/28 which indicated EF 51%, and signs of mild inferior wall ischemia. I have ordered for him an outpatient echocardiogram secondary to his complaints which he states have gotten worse recently. Discharge medications: #1. Augmentin PO q12h x 9 days #2. Protonix 40mg PO daily x 28 days F/U: #1. PCP - Dr. Hughes #2. Delivery Engineer - Dr. Dalton Patient advised to return if he experiences chest pain, sob, palpitations, fever , chills, nausea or vomiting. - Patient Data Vitals - Most Recent: Last Vital Signs Temp 36.6 C 07/17/17 07:33 Pulse 83 07/17/17 07:33 Resp 16 07/17/17 07:33 BP 135/78 07/17/17 07:33 Pulse Ox 98 07/17/17 07:33 Weight - Most Recent: 123.06 kg I&O - Last 24 hours: Intake & Output 07/16/17 07/17/17 07/17/17 22:59 06:59 14:59 Intake Total 820 Output Total 200 Balance 620 Lab Results - Last 24 hrs: Laboratory Results - last 24 hr 07/16/17 07/16/17 07/16/17 Range/Units 11:17 11:17 11:17 WBC 12.25 H (4.0-11.0) K/uL RBC 5.81 (4.50-5.90) M/uL Hgb 16.5 (13.0-17.0) g/dL Hct 50.5 H (38.0-50.0) % MCV 86.9 (80.0-98.0) fL MCH 28.4 (27.0-32.0) pg MCHC 32.7 (31.0-37.0) g/dL RDW Std Deviation 47.4 (28.0-62.0) fl RDW Coeff of Diane 15 (11.0-15.0) % Plt Count 262 (150-400) K/uL MPV 9.40 (7.40-12.00) fL Neut % (Auto) 75.9 (48.0-80.0) % Lymph % (Auto) 18.0 (16.0-40.0) % [place] % (Auto) 5.5 (0.0-15.0) % Eos % (Auto) 0.4 (0.0-7.0) % Baso % (Auto) 0.2 (0.0-1.5) % Neut # (Auto) 9.3 H (1.4-5.7) K/uL Lymph # (Auto) 2.2 (0.6-2.4) K/uL [place] # (Auto) 0.7 (0.0-0.8) K/uL Eos # (Auto) 0.1 (0.0-0.7) K/uL Baso # (Auto) 0.0 (0.0-0.1) K/uL Nucleated RBC % 0.0 /100WBC Nucleated RBCs # 0 K/uL Sodium 139 (136-148) mmol/L Potassium 4.2 (3.5-5.1) mmol/L Chloride 103 (98-107) mmol/L Carbon Dioxide 28.7 (21.0-32.0) mmol/L BUN 21 H (7.0-18.0) mg/dL Creatinine 1.4 H (0.8-1.3) mg/dL Est Cr Clr Drug Dosing 63.13 mL/min Estimated GFR (MDRD) 52.1 ml/min Glucose 108 H (74-106) mg/dL Calcium 9.7 (8.5-10.1) mg/dL Total Bilirubin 0.6 (0.2-1.0) mg/dL AST 16 (15-37) IU/L ALT 31 (14-63) IU/L Alkaline Phosphatase 102 (46-116) U/L Troponin I < 0.050 (0.000-0.056) ng/mL Total Protein 7.8 (6.4-8.2) g/dL Albumin 4.0 (3.4-5.0) g/dL Globulin 3.8 H (2.0-3.5) g/dL Albumin/Globulin Ratio 1.1 L (1.3-2.8) Lipase 161 (73-393) U/L 07/16/17 07/17/17 Range/Units 18:10 01:26 WBC (4.0-11.0) K/uL RBC (4.50-5.90) M/uL Hgb (13.0-17.0) g/dL Hct (38.0-50.0) % MCV (80.0-98.0) fL MCH (27.0-32.0) pg MCHC (31.0-37.0) g/dL RDW Std Deviation (28.0-62.0) fl RDW Coeff of Diane (11.0-15.0) % Plt Count (150-400) K/uL MPV (7.40-12.00) fL Neut % (Auto) (48.0-80.0) % Lymph % (Auto) (16.0-40.0) % [place] % (Auto) (0.0-15.0) % Eos % (Auto) (0.0-7.0) % Baso % (Auto) (0.0-1.5) % Neut # (Auto) (1.4-5.7) K/uL Lymph # (Auto) (0.6-2.4) K/uL [place] # (Auto) (0.0-0.8) K/uL Eos # (Auto) (0.0-0.7) K/uL Baso # (Auto) (0.0-0.1) K/uL Nucleated RBC % /100WBC Nucleated RBCs # K/uL Sodium (136-148) mmol/L Potassium (3.5-5.1) mmol/L Chloride (98-107) mmol/L Carbon Dioxide (21.0-32.0) mmol/L BUN (7.0-18.0) mg/dL Creatinine (0.8-1.3) mg/dL Est Cr Clr Drug Dosing mL/min Estimated GFR (MDRD) ml/min Glucose (74-106) mg/dL Calcium (8.5-10.1) mg/dL Total Bilirubin (0.2-1.0) mg/dL AST (15-37) IU/L ALT (14-63) IU/L Alkaline Phosphatase (46-116) U/L Troponin I < 0.050 < 0.050 (0.000-0.056) ng/mL Total Protein (6.4-8.2) g/dL Albumin (3.4-5.0) g/dL Globulin (2.0-3.5) g/dL Albumin/Globulin Ratio (1.3-2.8) Lipase (73-393) U/L Med Orders - Current: Current Medications Acetaminophen (Tylenol) 650 mg PO Q4H PRN PRN Reason: Pain Albuterol/Ipratropium (Duoneb 3.0-0.5 Mg/3 Ml) 3 ml NEB Q4HRRT PRN PRN Reason: Shortness Of Breath/wheezing Amoxicillin/Clavulanate Potassium (Augmentin 875 Mg/125 Mg) 1 tab PO Q12HR [facility] Last Admin: 07/16/17 20:05 Dose: 1 tab Aspirin (Aspirin) 81 mg PO DAILY [facility] Atorvastatin Calcium (Lipitor) 40 mg PO BEDTIME [facility] Last Admin: 07/16/17 20:05 Dose: 40 mg Enoxaparin Sodium (Lovenox) 40 mg SUBCUT Q24H [facility] Last Admin: 07/16/17 14:18 Dose: 40 mg Metoprolol Tartrate (Lopressor) 25 mg PO Q12HR [facility] Last Admin: 07/16/17 20:05 Dose: 25 mg Morphine Sulfate (Morphine) 2 mg IVPUSH Q3H PRN PRN Reason: Pain Nitroglycerin (Nitrostat) 0.4 mg SL Q5M PRN PRN Reason: Chest Pain Last Admin: 07/16/17 11:34 Dose: 0.4 mg Discontinued Medications Aspirin (Aspirin) 324 mg PO ONETIME ONE Stop: 07/16/17 11:16 Last Admin: 07/16/17 11:24 Dose: 324 mg Aspirin (Aspirin) 81 mg PO BEDTIME [facility] Sodium Chloride (Normal Saline) 1,000 mls @ 999 mls/hr IV STAT ONE Stop: 07/16/17 12:15 Last Admin: 07/16/17 11:24 Dose: 999 mls/hr Morphine Sulfate (Morphine) 4 mg IVPUSH ONETIME ONE Stop: 07/16/17 11:44 Last Admin: 07/16/17 11:52 Dose: 4 mg Morphine Sulfate (Morphine) Confirm Administered Dose 10 mg .ROUTE .STK-MED ONE Stop: 07/16/17 23:55 Last Admin: 07/17/17 00:53 Dose: Not Given Pantoprazole Sodium (Protonix Iv) 40 mg IVPUSH ONETIME ONE Stop: 07/16/17 13:26 Last Admin: 07/16/17 14:18 Dose: 40 mg
[2017-07-17] MEDS: Amoxicillin/Clavulanate K 875-125 MG Tab PO SCH (08:25)
[2017-07-17] MEDS: Metoprolol Tartrate 25 MG Tab PO SCH (08:26)
[2017-07-17] MEDS ORDERED: Aspirin 81 MG Tab.Chew PO SCH (09:00)
[2017-07-17] MEDS ORDERED: Morphine 2 MG/ML Syringe IVPUSH PRN (23:50)
== END 2017-07-17 09:30 | disposition home or self-care (01) ==
LOC: MW.ED 11:12 → MW.MS 12:37
PROVIDERS: ADMIT Internal Medicine; ATTEND Internal Medicine
DX: R07.9 Chest pain, unspecified (principal); R06.01 Orthopnea; R06.09 Other forms of dyspnea; J01.90 Acute sinusitis, unspecified; J20.8 Acute bronchitis due to other specified organisms; D72.829 Elevated white blood cell count, unspecified; I10 Essential (primary) hypertension; K21.9 Gastro-esophageal reflux disease without esophagitis; I25.10 Atherosclerotic heart disease of native coronary artery without angina pectoris; N17.9 Acute kidney failure, unspecified; E78.00 Pure hypercholesterolemia, unspecified; Z87.891 Personal history of nicotine dependence; Z79.82 Long term (current) use of aspirin; Z79.899 Other long term (current) drug therapy; Z95.5 Presence of coronary angioplasty implant and graft
CPT/HCPCS: 36415; 71045; 80053; 83690; 84484; 85025; 93005; 96361; 96374; 99285; A9270; C9113; J1650; J2270; J7040; 96372; 96375; 99283; G0378

== ENCOUNTER 2017-11-13 13:43 | Emergency (ER) | payer OTHER ==
[2017-11-13 13:57] VITALS: BP 124/81
[2017-11-13] MEDS ORDERED: Albuterol/Ipratropium 3.0-0.5 MG/3 ML Neb Soln NEB ONE (14:08)
--- NOTE | 2017-11-13 14:51 | EDM.PDOC ---
ED HPI GENERAL MEDICAL PROBLEM - General Chief Complaint: Respiratory Problem Stated Complaint: COLD SYMPTOMS Time Seen by Provider: 11/13/17 13:49 Source of Information: Reports: Patient History Limitations: Reports: No Limitations - History of Present Illness INITIAL COMMENTS - FREE TEXT/NARRATIVE: HISTORY AND PHYSICAL: History of present illness: Patient is a 57-year-old male with complaints of cough, shortness of breath and chest congestion 2 weeks. He states he is concerned that the cough hasn't gone away. Reports his brother, who is a doctor, thought if he coughed too hard he could "loose up a stent". He denies any fever, chills, chest pain, abdominal pain, nausea, vomiting, diarrhea or constipation. Review of systems: As per history of present illness and below otherwise all systems reviewed and negative. Past medical history: As per history of present illness and as reviewed below otherwise noncontributory. Surgical history: As per history of present illness and as reviewed below otherwise noncontributory. Social history: No reported history of drug or alcohol abuse. Family history: As per history of present illness and as reviewed below otherwise noncontributory. Physical exam: General: Well-developed and well-nourished 57-year-old male. Alert and oriented. Nontoxic appearing and in no acute distress. HEENT: Atraumatic, normocephalic, pupils equal and reactive bilaterally, negative for conjunctival pallor or scleral icterus, mucous membranes moist, throat clear, neck supple, nontender, trachea midline. No drooling or trismus noted. No meningeal signs Lungs: Expiratory wheezing noted to the posterior bases bilaterally, breath sounds equal bilaterally, chest nontender. Heart: S1S2, regular rate and rhythm without overt murmur Abdomen: Soft, nondistended, nontender. Negative for masses or hepatosplenomegaly. Negative for costovertebral tenderness. Pelvis: Stable nontender. Genitourinary: Deferred. Rectal: Deferred. Skin: Intact, warm, dry. No lesions or rashes noted. Extremities: Atraumatic, negative for cords or calf pain. Neurovascular unremarkable. Neuro: Awake, alert, oriented. Cranial nerves II through XII unremarkable. Cerebellum unremarkable. Motor and sensory unremarkable throughout. Exam nonfocal. Notes: Diagnostics: CBC, CMP, EKG, chest x-ray Therapeutics: DuoNeb Prescription: Medrol Dose Pack Phenergan with Harpalienyue Moore Impression: Bronchitis Plan: 1. Take your medications as prescribed. The phenergan with harpaliene will cause drowsiness, so do not take while driving or needing to be functioning outside the house. 2. Please follow-up with her primary care provider in the next 1-2 days. Return to the ED as needed and as discussed. Definitive disposition and diagnosis as appropriate pending reevaluation and review of above. chest frontal Pain Score (Numeric/FACES): 9 - Related Data Allergies Allergy/AdvReac Type Severity Reaction Status Date / Time No Known Allergies Allergy Verified 11/13/17 13:57 Home Meds: Home Meds Aspirin 81 mg PO BEDTIME #30 tab.chew 12/29/16 [Rx] Metoprolol Tartrate [Lopressor] 25 mg PO Q12HR #60 tablet 12/29/16 [Rx] Nitroglycerin [IJP: Nitroglycerin] 0.4 mg SL Q5M PRN #90 tablet, sublingual [Rx] atorvaSTATin [Lipitor] 40 mg PO BEDTIME #30 tablet 12/29/16 [Rx] Pantoprazole Sodium [Protonix] 40 mg PO DAILY 28 Days #28 tablet. 07/17/17 [Rx ] Past Medical History HEENT History: Reports: None, Other (See Below) Other HEENT History: dental abcess Cardiovascular History: Reports: CAD, High Cholesterol, Hypertension, Stents Other Cardiovascular History: acute coronary syndrome, angina, stent x2 Respiratory History: Reports: SOB Gastrointestinal History: Reports: GERD, Other (See Below) Other Gastrointestinal History: L groin pain, hernias Genitourinary History: Reports: None BUDGET CONTROLLER History: Reports: None Musculoskeletal History: Reports: None Neurological History: Reports: None Psychiatric History: Reports: None Endocrine/Metabolic History: Reports: None Hematologic History: Reports: None Immunologic History: Reports: None Oncologic (Cancer) History: Reports: None Dermatologic History: Reports: None - Infectious Disease History Infectious Disease History: Reports: Chicken Pox, Measles, Mumps - Past Surgical History HEENT Surgical History: Reports: None Cardiovascular Surgical History: Reports: Coronary Artery Stent, Percutaneous Transluminal Angioplasty Respiratory Surgical History: Reports: None GI Surgical History: Reports: Appendectomy, Hernia, Inguinal, Other (See Below) Social & Family History - Family History Family Medical History: Noncontributory - Tobacco Use Smoking Status *Q: Former Smoker Used Tobacco, but Quit: Yes Month/Year Tobacco Last Used: 2012 - Caffeine Use Caffeine Use: Reports: Coffee - Recreational Drug Use Recreational Drug Use: No ED ROS GENERAL - Review of Systems Review Of Systems: ROS reveals no pertinent complaints other than HPI. ED EXAM, GENERAL - Physical Exam Exam: See Below (See dictation) Course - Vital Signs Last Recorded V/S: Last Vital Signs Temp 97.4 F 11/13/17 13:54 Pulse 92 11/13/17 13:54 Resp 16 11/13/17 13:54 BP 124/81 11/13/17 13:54 Pulse Ox 95 11/13/17 13:54 - Orders/Labs/Meds Orders: Active Orders 24 hr Category Date Time Status EKG Documentation Completion [RC] STAT Care 11/13/17 14:08 Active RT Aerosol Therapy [RC] ASDIRECTED Care 11/13/17 14:08 Active Chest 2V [CR] Stat Exams 11/13/17 14:04 Taken Labs: Laboratory Tests 11/13/17 11/13/17 Range/Units 14:14 14:14 WBC 8.32 (4.0-11.0) K/uL RBC 5.51 (4.50-5.90) M/uL Hgb 15.8 (13.0-17.0) g/dL Hct 47.8 (38.0-50.0) % MCV 86.8 (80.0-98.0) fL MCH 28.7 (27.0-32.0) pg MCHC 33.1 (31.0-37.0) g/dL RDW Std Deviation 46.6 (28.0-62.0) fl RDW Coeff of Diane 15 (11.0-15.0) % Plt Count 289 (150-400) K/uL MPV 9.70 (7.40-12.00) fL Neut % (Auto) 62.1 (48.0-80.0) % Lymph % (Auto) 31.9 (16.0-40.0) % [place] % (Auto) 4.6 (0.0-15.0) % Eos % (Auto) 1.3 (0.0-7.0) % Baso % (Auto) 0.1 (0.0-1.5) % Neut # (Auto) 5.2 (1.4-5.7) K/uL Lymph # (Auto) 2.7 H (0.6-2.4) K/uL [place] # (Auto) 0.4 (0.0-0.8) K/uL Eos # (Auto) 0.1 (0.0-0.7) K/uL Baso # (Auto) 0.0 (0.0-0.1) K/uL Nucleated RBC % 0.0 /100WBC Nucleated RBCs # 0 K/uL Sodium 138 (136-148) mmol/L Potassium 4.0 (3.5-5.1) mmol/L Chloride 105 (98-107) mmol/L Carbon Dioxide 27.0 (21.0-32.0) mmol/L BUN 16 (7.0-18.0) mg/dL Creatinine 1.3 (0.8-1.3) mg/dL Est Cr Clr Drug Dosing 67.98 mL/min Estimated GFR (MDRD) 56.7 ml/min Glucose 149 H (74-106) mg/dL Calcium 8.9 (8.5-10.1) mg/dL Total Bilirubin 0.3 (0.2-1.0) mg/dL AST 12 L (15-37) IU/L ALT 26 (14-63) IU/L Alkaline Phosphatase 93 (46-116) U/L Total Protein 7.3 (6.4-8.2) g/dL Albumin 3.6 (3.4-5.0) g/dL Globulin 3.7 H (2.0-3.5) g/dL Albumin/Globulin Ratio 1.0 L (1.3-2.8) Meds: Medications Discontinued Medications Generic Name Dose Route Start Last Admin Trade Name Freq PRN Reason Stop Dose Admin Albuterol/Ipratropium 3 ml 11/13/17 14:08 11/13/17 14:40 Duoneb 3.0-0.5 Mg/3 Ml NEB 11/13/17 14:09 3 ml ONETIME ONE Administration Departure - Departure Time of Disposition: 15:08 Disposition: Home, Self-Care 01 Clinical Impression: Bronchitis - Discharge Information Instructions: Acute Bronchitis, Adult, [id number] Referrals: PCP,None [Primary Care Provider] - Forms: ED Department Discharge Additional Instructions: The following information is given to patients seen in the emergency department who are being discharged to home. This information is to outline your options for follow-up care. We provide all patients seen in our emergency department with a follow-up referral. The need for follow-up, as well as the timing and circumstances, are variable depending upon the specifics of your emergency department visit. If you don't have a primary care physician on staff, we will provide you with a referral. We always advise you to contact your personal physician following an emergency department visit to inform them of the circumstance of the visit and for follow-up with them and/or the need for any referrals to a consulting specialist. The emergency department will also refer you to a specialist when appropriate. This referral assures that you have the opportunity for follow-up care with a specialist. All of these measure are taken in an effort to provide you with optimal care, which includes your follow-up. Under all circumstances we always encourage you to contact your private physician who remains a resource for coordinating your care. When calling for follow-up care, please make the office aware that this follow-up is from your recent emergency room visit. If for any reason you are refused follow-up, please contact the [facility] Emergency Department at and asked to speak to the emergency department charge nurse. [facility] [address] [place], [place] [id number] [place] [phone] 1. Take your medications as prescribed. The phenergan with codiene will cause drowsiness, so do not take while driving or needing to be functioning outside the house. 2. Please follow-up with her primary care provider in the next 1-2 days. Return to the ED as needed and as discussed. - My Orders Last 24 Hours: My Active Orders 11/13/17 14:04 Chest 2V [CR] Stat 11/13/17 14:08 EKG Documentation Completion [RC] STAT RT Aerosol Therapy [RC] ASDIRECTED - Assessment/Plan Last 24 Hours: My Active Orders 11/13/17 14:04 Chest 2V [CR] Stat 11/13/17 14:08 EKG Documentation Completion [RC] STAT RT Aerosol Therapy [RC] ASDIRECTED
--- NOTE | 2017-11-14 10:37 | CR ---
EXAM DATE: 11/13/17 PATIENT'S AGE: 57 Patient: ANTOINE EDGAR Facility: [place], [place] Site . Site : 1960 Study: XRay Chest [id number]/[id number] 2:57:40 PM Ordering Physician: Doctor Saleh Final Report: INDICATION: Chest pain and shortness of breath TECHNIQUE: Chest 2 views COMPARISON: 07/16/2017 FINDINGS: Cardiovascular and mediastinum: Heart size and vasculature are normal in caliber and appearance. Lungs and pleural spaces: Lungs are clear. No sign of infiltrate or mass. No sign of pleural effusion. No pneumothorax. Bones and soft tissues: No significant findings. IMPRESSION: Normal chest. Dictated by Carlo Barros MD @ Nov 13 2017 3:13PM (Electronic Signature) Report Signed by Proxy. SAHIL
== END 2017-11-13 15:34 | disposition home or self-care (01) ==
LOC: MW.ED 13:43
DX: J40 Bronchitis, not specified as acute or chronic (principal); I10 Essential (primary) hypertension; Z95.5 Presence of coronary angioplasty implant and graft; Z87.891 Personal history of nicotine dependence; Z79.82 Long term (current) use of aspirin; Z79.899 Other long term (current) drug therapy
CPT/HCPCS: 36415; 71046; 71046-26; 80053; 85025; 87804; 93005; 94640; 99283; 99284-25; J7620-GY

== ENCOUNTER 2018-06-09 10:08 | Emergency (ER) | payer OTHER ==
--- NOTE | 2018-06-09 10:14 | EDM.PDOC ---
ED HPI GENERAL MEDICAL PROBLEM - General Stated Complaint: TOOTH PAIN Time Seen by Provider: 06/09/18 10:13 Source of Information: Reports: Patient History Limitations: Reports: No Limitations - History of Present Illness INITIAL COMMENTS - FREE TEXT/NARRATIVE: HISTORY AND PHYSICAL: History of present illness: Patient is a 58-year-old male who presents to the emergency room with complaints of dental pain and gum swelling. Patient reports that he had a root canal on tooth #9 last week. He started having some gum swelling and discomfort the following day. He called the dentist who then put him on amoxicillin. He states his symptoms have not improved. Patient denies any fever, chills, headache, change in vision, syncope or near syncope. Denies any chest pain, back pain, shortness of breath or cough. Denies any abdominal pain, nausea, vomiting, diarrhea, constipation or dysuria. Has not noted any blood in urine or stool. Patient has been eating and drinking appropriately. Review of systems: As per history of present illness and below otherwise all systems reviewed and negative. Past medical history: As per history of present illness and as reviewed below otherwise noncontributory. Surgical history: As per history of present illness and as reviewed below otherwise noncontributory. Social history: See social history for further information Family history: As per history of present illness and as reviewed below otherwise noncontributory. Physical exam: General: Well-developed and well-nourished 58-year-old male. Alert and oriented. Nontoxic appearing and in no acute distress. HEENT: Atraumatic, normocephalic, pupils equal and reactive bilaterally, negative for conjunctival pallor or scleral icterus, mucous membranes moist, erythema and soft tissue swelling noted to the upper gumline along tooth #9 through 11. TMs normal bilaterally, throat clear, neck supple, nontender, trachea midline. No drooling or trismus noted. No meningeal signs. No hot potato voice noted. Lungs: Clear to auscultation, breath sounds equal bilaterally, chest nontender. Heart: S1S2, regular rate and rhythm without overt murmur Abdomen: Soft, nondistended, nontender. Negative for masses or hepatosplenomegaly. Negative for costovertebral tenderness. Pelvis: Stable nontender. Genitourinary: Deferred. Rectal: Deferred. Skin: Intact, warm, dry. No lesions or rashes noted. Extremities: Atraumatic, moves all extremities per self without difficulty or deficits, negative for cords or calf pain. Neurovascular unremarkable. Neuro: Awake, alert, oriented. Cranial nerves II through XII unremarkable. Cerebellum unremarkable. Motor and sensory unremarkable throughout. Exam nonfocal. Notes: Patient states he does have a follow-up appointment with his dentist next week. Supportive care measures were reviewed and discussed. Voices understanding and is agreeable to plan of care. Denies any further questions or concerns at this time. Diagnostics: None Therapeutics: None Prescription: Clindamycin Tramadol Impression: Dental abscess Plan: 1. Please take the antibiotic as prescribed. 2. Tylenol and/or ibuprofen as needed for pain management. Tramadol for moderate to severe pain. Use the "Tooth Balls" have been given to you; apply along the gumline every 2-3 hours as needed. Do not swallow these; external use only. 3. Follow-up with a dentist for definitive care. Return to the ED as needed and as discussed. Definitive disposition and diagnosis as appropriate pending reevaluation and review of above. Right Upper Tooth/Teeth Pain Score (Numeric/FACES): 10 - Related Data Allergies Allergy/AdvReac Type Severity Reaction Status Date / Time No Known Allergies Allergy Verified 06/09/18 10:23 Home Meds: Home Meds Aspirin 81 mg PO BEDTIME #30 tab.chew 12/29/16 [Rx] Nitroglycerin [IJP: Nitroglycerin] 0.4 mg SL Q5M PRN #90 tablet, sublingual [Rx] atorvaSTATin [Lipitor] 40 mg PO BEDTIME #30 tablet 12/29/16 [Rx] Pantoprazole Sodium [Protonix] 40 mg PO DAILY 28 Days #28 tablet. 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 Musculoskeletal History: Reports: None Neurological History: Reports: None Psychiatric History: Reports: None Endocrine/Metabolic History: Reports: None Hematologic History: Reports: None Immunologic History: Reports: None Oncologic (Cancer) History: Reports: None Dermatologic History: Reports: None - Infectious Disease History Infectious Disease History: Reports: Chicken Pox, Measles, Mumps - Past Surgical History HEENT Surgical History: Reports: None Cardiovascular Surgical History: Reports: Coronary Artery Stent, Percutaneous Transluminal Angioplasty Respiratory Surgical History: Reports: None GI Surgical History: Reports: Appendectomy, Hernia, Inguinal, Other (See Below) Social & Family History - Family History Family Medical History: Noncontributory - Caffeine Use Caffeine Use: Reports: Coffee ED ROS ENT - Review of Systems Review Of Systems: ROS reveals no pertinent complaints other than HPI. ED EXAM, ENT - Physical Exam Exam: See Below (See dictation) Course - Vital Signs Last Recorded V/S: Last Vital Signs Temp 98.6 F 06/09/18 10:20 Pulse 75 06/09/18 10:20 Resp 18 06/09/18 10:20 BP 149/86 H 06/09/18 10:20 Pulse Ox 95 06/09/18 10:20 - Orders/Labs/Meds Orders: Active Orders 24 hr Category Date Time Status Benzocaine [Hurricaine One 20%] Med 06/09/18 10:25 Once 2 each MUCMEM ONETIME ONE Lidocaine 2% [Xylocaine 2% Viscous] Med 06/09/18 10:25 Once 15 ml PO ONETIME ONE Departure - Departure Time of Disposition: 10:28 Disposition: Home, Self-Care 01 Clinical Impression: Dental abscess - Discharge Information Instructions: Dental Abscess, [id number] Referrals: Bryan Hughes MD [Primary Care Provider] - Additional Instructions: The following information is given to patients seen in the emergency department who are being discharged to home. This information is to outline your options for follow-up care. We provide all patients seen in our emergency department with a follow-up referral. The need for follow-up, as well as the timing and circumstances, are variable depending upon the specifics of your emergency department visit. If you don't have a primary care physician on staff, we will provide you with a referral. We always advise you to contact your personal physician following an emergency department visit to inform them of the circumstance of the visit and for follow-up with them and/or the need for any referrals to a consulting specialist. The emergency department will also refer you to a specialist when appropriate. This referral assures that you have the opportunity for follow-up care with a specialist. All of these measure are taken in an effort to provide you with optimal care, which includes your follow-up. Under all circumstances we always encourage you to contact your private physician who remains a resource for coordinating your care. When calling for follow-up care, please make the office aware that this follow-up is from your recent emergency room visit. If for any reason you are refused follow-up, please contact the [facility] Emergency Department at and asked to speak to the emergency department charge nurse. [facility] [address] [place] [id number] [facility] [address] [place] [id number] 1. Please take the antibiotic as prescribed. 2. Tylenol and/or ibuprofen as needed for pain management. Tramadol for moderate to severe pain. Use the "Tooth Balls" have been given to you; apply along the gumline every 2-3 hours as needed. Do not swallow these; external use only. 3. Follow-up with a dentist for definitive care. Return to the ED as needed and as discussed. - My Orders Last 24 Hours: My Active Orders 06/09/18 10:25 Benzocaine [Hurricaine One 20%] 2 each MUCMEM ONETIME ONE Lidocaine 2% [Xylocaine 2% Viscous] 15 ml PO ONETIME ONE - Assessment/Plan Last 24 Hours: My Active Orders 06/09/18 10:25 Benzocaine [Hurricaine One 20%] 2 each MUCMEM ONETIME ONE Lidocaine 2% [Xylocaine 2% Viscous] 15 ml PO ONETIME ONE
[2018-06-09 10:23] VITALS: BP 149/86
[2018-06-09] MEDS ORDERED: Benzocaine 20% Topical Spray UD MUCMEM ONE (10:25)
[2018-06-09] MEDS ORDERED: Lidocaine 2% Viscous Solution 15 ML Cup PO ONE (10:25)
== END 2018-06-09 10:49 | disposition home or self-care (01) ==
LOC: MW.ED 10:08
DX: K04.7 Periapical abscess without sinus (principal)
CPT/HCPCS: 99282; A9270; 99283

== ENCOUNTER 2019-02-01 14:16 | Emergency (ER) | payer BC, OTHER ==
--- NOTE | 2019-02-01 14:31 | EDM.PDOC ---
ED HPI GENERAL MEDICAL PROBLEM - General Chief Complaint: ENT Problem Stated Complaint: SINUS INFECTION Time Seen by Provider: 02/01/19 14:31 Source of Information: Reports: Patient History Limitations: Reports: No Limitations - History of Present Illness INITIAL COMMENTS - FREE TEXT/NARRATIVE: HISTORY AND PHYSICAL: History of present illness: Patient is a 58-year-old male presents to the ED with complaint of sinus infection. He states he is having right sided sinus pressure and drainage x 4 days. He reports fever last night of 101F. Denies nausea, vomiting, abdominal pain, cough, chest pain, shortness of breath, sore throat. Review of systems: As per history of present illness and below otherwise all systems reviewed and negative. Past medical history: As per history of present illness and as reviewed below otherwise noncontributory. Surgical history: As per history of present illness and as reviewed below otherwise noncontributory. Social history: No reported history of drug or alcohol abuse. Family history: As per history of present illness and as reviewed below otherwise noncontributory. Physical exam: General: Patient sitting comfortably in no acute distress and nontoxic appearing HEENT: Right maxillary tenderness to palpation. TMs clear bilaterally. Atraumatic, normocephalic, pupils reactive, negative for conjunctival pallor or scleral icterus, mucous membranes moist, throat clear, neck supple, nontender, trachea midline. No meningeal signs. Lungs: Clear to auscultation, breath sounds equal bilaterally, chest nontender. Heart: S1S2, regular, negative for clicks, rubs, or overt murmur. Abdomen: Soft, nondistended, nontender. Negative for masses or hepatosplenomegaly. Negative for costovertebral tenderness. No rigidity, rebound , guarding. Pelvis: Stable nontender. Genitourinary: Deferred. Rectal: Deferred. Extremities: Atraumatic, negative for cords or calf pain. Neurovascular unremarkable. Neuro: Awake, alert, oriented. Cranial nerves II through XII unremarkable. Cerebellum unremarkable. Motor and sensory unremarkable throughout. Exam nonfocal. Notes: Diagnostics: [] Therapeutics: [] Prescriptions: Augmentin Impression: Acute sinusitis Definitive disposition and diagnosis as appropriate pending reevaluation and review of above. Head Pain Score (Numeric/FACES): 10 - Related Data Allergies Allergy/AdvReac Type Severity Reaction Status Date / Time No Known Allergies Allergy Verified 02/01/19 14:30 Home Meds: Home Meds Aspirin 81 mg PO BEDTIME #30 tab.chew 12/29/16 [Rx] Nitroglycerin [IJP: Nitroglycerin] 0.4 mg SL Q5M PRN #90 tablet, sublingual [Rx] atorvaSTATin [Lipitor] 40 mg PO BEDTIME #30 tablet 12/29/16 [Rx] Pantoprazole Sodium [Protonix] 40 mg PO DAILY 28 Days #28 tablet. 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 Musculoskeletal History: Reports: None Neurological History: Reports: None Psychiatric History: Reports: None Endocrine/Metabolic History: Reports: None Hematologic History: Reports: None Immunologic History: Reports: None Oncologic (Cancer) History: Reports: None Dermatologic History: Reports: None - Infectious Disease History Infectious Disease History: Reports: Chicken Pox, Measles, Mumps - Past Surgical History HEENT Surgical History: Reports: None Cardiovascular Surgical History: Reports: Coronary Artery Stent, Percutaneous Transluminal Angioplasty Respiratory Surgical History: Reports: None GI Surgical History: Reports: Appendectomy, Hernia, Inguinal, Other (See Below) Social & Family History - Family History Family Medical History: Noncontributory - Caffeine Use Caffeine Use: Reports: Coffee ED ROS ENT - Review of Systems Review Of Systems: Comprehensive ROS is negative, except as noted in HPI. ED EXAM, ENT - Physical Exam Exam: See Below (see dictation) Course - Vital Signs Last Recorded V/S: Last Vital Signs Temp 97.1 F 02/01/19 14:31 Pulse 75 02/01/19 14:31 Resp 18 02/01/19 14:31 BP 145/78 H 02/01/19 14:31 Pulse Ox 93 L 02/01/19 14:31 Departure - Departure Time of Disposition: 14:51 Disposition: Home, Self-Care 01 Condition: Good Clinical Impression: Acute sinusitis - Discharge Information Prescriptions: Amoxicillin/Potassium Clav [Augmentin 875-125 Tablet] 1 each PO BID 7 Days #14 tablet Referrals: Bryan Hughes MD [Primary Care Provider] - Forms: ED Department Discharge Additional Instructions: The following information is given to patients seen in the emergency department who are being discharged to home. This information is to outline your options for follow-up care. We provide all patients seen in our emergency department with a follow-up referral. The need for follow-up, as well as the timing and circumstances, are variable depending upon the specifics of your emergency department visit. If you don't have a primary care physician on staff, we will provide you with a referral. We always advise you to contact your personal physician following an emergency department visit to inform them of the circumstance of the visit and for follow-up with them and/or the need for any referrals to a consulting specialist. The emergency department will also refer you to a specialist when appropriate. This referral assures that you have the opportunity for follow-up care with a specialist. All of these measure are taken in an effort to provide you with optimal care, which includes your follow-up. Under all circumstances we always encourage you to contact your private physician who remains a resource for coordinating your care. When calling for follow-up care, please make the office aware that this follow-up is from your recent emergency room visit. If for any reason you are refused follow-up, please contact the [facility] Emergency Department at and asked to speak to the emergency department charge nurse. [facility] [address] [place] [address] [id number] [address] [id number] Take antibiotic as instructed Follow up with primary care provider Return to ED as needed as discussed Sepsis Event Note - Focused Exam Vital Signs: Vital Signs Temp Pulse Resp BP Pulse Ox 02/01/19 14:31 97.1 F 75 18 145/78 H 93 L Date Exam was Performed: 02/01/19 Time Exam was Performed: 14:51
[2019-02-01 14:34] VITALS: BP 145/78; PULSE 75
== END 2019-02-01 15:02 | disposition home or self-care (01) ==
LOC: MW.ED 14:16
DX: J01.90 Acute sinusitis, unspecified (principal); I10 Essential (primary) hypertension; I25.10 Atherosclerotic heart disease of native coronary artery without angina pectoris; E78.00 Pure hypercholesterolemia, unspecified; K21.9 Gastro-esophageal reflux disease without esophagitis; Z95.5 Presence of coronary angioplasty implant and graft; Z79.82 Long term (current) use of aspirin; Z79.899 Other long term (current) drug therapy
CPT/HCPCS: 99282; 99283